=== PATIENT | female | born 1965 | race Caucasian/White ===

== ENCOUNTER → 2016-09-14 | Outpatient (CLI) | payer SELFPAY ==
--- NOTE | 2016-09-18 09:09 | MM ---
Reason for exam: additional evaluation requested from prior study. Last mammogram was performed 9 months ago. History: Patient has history of breast cancer at age 50. Family history of breast cancer in 3 maternal aunts. Radiation therapy of the right breast, January 2016. Malignant US breast localization RT of the right breast, December 02, 2015. US biopsy breast VAD LT of the left breast, October 18, 2015. Malignant US breast needle core RT of the right breast, August 17, 2015. Taking antineoplastic beginning at age 51. Physical Findings: Nurse did not find any significant physical abnormalities on exam. MG 3D Diag Mammo W/Cad CRISTOFER Bilateral CC and MLO view(s) were taken. Prior study comparison: December 02, 2015, right breast MG diagnostic mammo RT wo CAD. October 18, 2015, left breast MG diagnostic mammo LT wo CAD. The breast tissue is heterogeneously dense. This may lower the sensitivity of mammography. Previous mammotome biopsy in the left breast. Surgical changes in the right breast. No significant new findings when compared with previous films. These results were verbally communicated with the patient and result sheet given to the patient on 09/14/16. ASSESSMENT: Benign, BI-RAD 2 RECOMMENDATION: Routine screening mammogram of both breasts in 1 year.
== END | disposition home or self-care (01) ==
LOC: RADMAMWWP 12:43
PROVIDERS: ATTEND Radiology Radiation Oncology
DX: Z85.3 Personal history of malignant neoplasm of breast (principal)
CPT/HCPCS: G0204; G0279

== ENCOUNTER → 2018-10-13 | Outpatient (CLI) | payer BC, OTHER ==
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
== END | disposition home or self-care (01) ==
LOC: RADMRIMAIN 10:27
PROVIDERS: ATTEND Nurse Practitioner Family
DX: I67.82 Cerebral ischemia (principal)
CPT/HCPCS: 70553; A9585

== ENCOUNTER → 2019-06-04 | Outpatient (CLI) | payer OTHER ==
--- NOTE | 2019-06-16 08:48 | MM ---
Reason for exam: screening (asymptomatic). Last mammogram was performed 2 years and 9 months ago. History: Patient is postmenopausal and has history of breast cancer at age 50. Family history of breast cancer in 3 maternal aunts. Radiation therapy of the right breast, January 2016. Malignant US breast localization RT of the right breast, December 02, 2015. US biopsy breast VAD LT of the left breast, October 18, 2015. Malignant US breast needle core RT of the right breast, August 17, 2015. Taking antineoplastic for 1 year beginning at age 51. Physical Findings: A clinical breast exam by your physician is recommended on an annual basis and results should be correlated with mammographic findings. MG 3D Screening Mammo W/Cad Bilateral CC and MLO view(s) were taken. Prior study comparison: September 14, 2016, bilateral MG 3d diag mammo w/cad CRISTOFER. December 02, 2015, right breast MG diagnostic mammo RT wo CAD. The breast tissue is heterogeneously dense. This may lower the sensitivity of mammography. There is a new 3mm left lower inner quadrant mass at middle depth and left upper outer quadrant architectural distortion 6cm from nipple in the upper outer quadrant. Benign appearing bilateral calcifications. Right superior middle depth architectural distortion on 3D MLO 45/87. Post therapy change on the right. ASSESSMENT: Incomplete: need additional imaging evaluation, BI-RAD 0 RECOMMENDATION: Special view mammogram of both breasts. If lesion persists on supplemental views, image directed ultrasound is recommended. [facility] will attempt to contact patient to return for supplemental views and ultrasound if indicated.
== END | disposition home or self-care (01) ==
LOC: RADMAMWWP 09:12
PROVIDERS: ATTEND Family Medicine
DX: Z12.31 Encounter for screening mammogram for malignant neoplasm of breast (principal)
CPT/HCPCS: 77063; 77067

== ENCOUNTER 2020-01-12 14:30 | Emergency (ER) | payer OTHER ==
[2020-01-12 14:36] VITALS: RESP 18
[2020-01-12] MEDS ORDERED: KETOROLAC 15 MG/ML 1 ML VIAL IVP STA (15:01)
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
[2020-01-12 15:41] LABS: Basophils % (A) 1 %; Eosinophils # (A) 0.1 k/uL (0-0.7); Eosinophils % (A) 2 %; HCT 44.1 % (34.0-46.0); HGB 14.6 gm/dL (11.4-16.0); Lymphocytes # (A) 1.4 k/uL (1.0-4.8); Lymphocytes % (A) 27 %; MCH 29.4 pg (25.0-35.0); MCHC 33.1 g/dL (31.0-37.0); MCV 88.7 fL (80.0-100.0); Mean Platelet Volume 7.1; Monocytes # (A) 0.2 k/uL (0-1.0); Monocytes % (A) 4 %; Neutrophils # (A) 3.3 k/uL (1.3-7.7); Neutrophils % (A) 65 %; Platelet Count 229 k/uL (150-450); RBC 4.98 m/uL (3.80-5.40); RDW 12.8 % (11.5-15.5)
[2020-01-12 15:44] LABS: Appearance,Urine Clear (Clear); Bilirubin,Urine Negative (Negative); Blood,Urine Negative (Negative); Color,Urine Light Yellow; Glucose,Urine (UA) Negative (Negative); Ketones,Urine Negative (Negative); Leukocyte Esterase,Urine Negative (Negative); Nitrite,Urine Negative (Negative); Protein,Urine Negative (Negative); Specific Gravity,Urine 1.008 (1.001-1.035); Urobilinogen,Urine <2.0 mg/dL (<2.0)
--- NOTE | 2020-01-12 15:53 | XR ---
EXAMINATION TYPE: XR chest 2V DATE OF EXAM: 01/12/2020 CLINICAL HISTORY: Difficulty breathing TECHNIQUE: Frontal and lateral views of the chest are obtained. COMPARISON: None FINDINGS: The cardiomediastinal silhouette is within normal limits for size. Pulmonary vasculature i s normal. There is no focal air space opacity, pleural effusion, or pneumothorax seen. The osseous st ructures are intact. Right breast surgical clips. IMPRESSION: No acute cardiopulmonary process.
[2020-01-12 16:07] LABS: ALT 26 U/L (4-34); AST 43 U/L (14-36); African American GFR (CKD) >90 (>60 ml/min/1.73 sqM); Albumin 4.7 g/dL (3.5-5.0); Alkaline Phosphatase 95 U/L (38-126); Anion Gap 6 mmol/L; Blood Urea Nitrogen 12 mg/dL (7-17); Calcium 9.4 mg/dL (8.4-10.2); Carbon Dioxide 28 mmol/L (22-30); Chloride 103 mmol/L (98-107); Glucose 97 mg/dL (74-99); Non-African American GFR(CKD) >90 (>60 ml/min/1.73 sqM); Sodium 137 mmol/L (137-145); Total Bilirubin 0.7 mg/dL (0.2-1.3); Total Protein 8.3 g/dL (6.3-8.2)
[2020-01-12 16:10] LABS: INR 0.9 (<1.2); Partial Thromboplastin Time 27.2 sec (22.0-30.0); Prothrombin Time 9.5 sec (9.0-12.0)
[2020-01-12 17:13] LABS: Potassium 4.3 mmol/L (3.5-5.1)
--- NOTE | 2020-01-12 17:22 | CT ---
EXAMINATION TYPE: CT chest wo con DATE OF EXAM: 01/12/2020 COMPARISON: None HISTORY: Shortness of breath post shoulder injection today CT DLP: 273.8 mGycm Automated exposure control for dose reduction was used. Images were obtained from the thoracic inlet to the diaphragm with no contrast. FINDINGS: The lungs are clear of infiltrate. There is no pleural effusion or pneumothorax. There is no mediasti nal adenopathy. Thoracic aorta has normal size. There is no sign of aneurysm. There are no hilar mass es. Heart size is normal. There is no pericardial effusion. Upper abdominal soft tissues are intact. The bony thorax is intact. There is no compression fracture. Sternum is intact. The ribs appear intac t. I see no bony destructive process. There is no evidence of a soft tissue mass. Visualized shoulder joints appear intact. IMPRESSION: Negative CT scan of the chest.
[2020-01-12 18:17] VITALS: BP 140/93; PULSE 93; TEMP 98
== END 2020-01-12 18:17 | disposition home or self-care (01) ==
LOC: EC 14:30
DX: R06.02 Shortness of breath (principal); R07.89 Other chest pain; Z91.040 Latex allergy status; Z91.048 Other nonmedicinal substance allergy status; Z85.3 Personal history of malignant neoplasm of breast; Z98.890 Other specified postprocedural states
CPT/HCPCS: 36415; 80053; 83735; 84484; 85025; 85610; 85730; 81003; 71046; 71250; 99285; 96374; J1885; 93005

== ENCOUNTER → 2020-01-13 | Outpatient (CLI) | payer OTHER ==
--- NOTE | 2020-01-13 15:09 | XR ---
EXAMINATION TYPE: XR chest 2V DATE OF EXAM: 01/13/2020 COMPARISON: 01/12/2020 HISTORY: Shortness of breath TECHNIQUE: Frontal and lateral views of the chest are obtained. FINDINGS: Scattered senescent parenchymal changes noted. Hyperinflation compatible with COPD. No evidence for infiltrate. No evidence for atelectasis. Heart size is stable. Mediastinal structures are stable and grossly unremarkable. No evidence for hilar prominence. Degenerative changes dorsal spine. IMPRESSION: 1. No evidence for acute pulmonary disease.
== END | disposition home or self-care (01) ==
LOC: RADXRMAIN 14:44
PROVIDERS: ATTEND Family Medicine
DX: R06.02 Shortness of breath (principal)
CPT/HCPCS: 71046

== ENCOUNTER → 2020-02-05 | Outpatient (CLI) | payer OTHER ==
--- NOTE | 2020-02-05 16:14 | BD ---
EXAMINATION TYPE: Axial Bone Density DATE OF EXAM: 02/05/2020 COMPARISON: NONE CLINICAL HISTORY: Height: 63 Weight: 170.0 FRAX RISK QUESTIONS: Alcohol (3 or more units per day): NO Family History (Parent hip fracture): no Glucocorticoids (More than 3mos): no (Ex: prednisone, prednisolone, methylprednisolone, dexamethasone, and hydrocortisone). History of Fracture in Adulthood: no Secondary Osteoporosis: 1. Type 1 Diabetes: no 2. Hyperthyroidism: no 3. Menopause before 45: yes 4. Malnutrition: no 5. Chronic liver disease: no Rheumatoid Arthritis: no Current Tobacco Use: no RISK FACTORS HISTORY OF: Family History of Osteoporosis: no Active: sometimes Diet low in dairy products/other sources of calcium: yes Postmenopausal woman: age 31 hysterectomy Lost more than 2 inches in height since high school: no MEDICATIONS: pain meds, cholesterol meds Additional History: EXAM MEASUREMENTS: Bone mineral densitometry was performed using the [employer] System. Bone mineral density as measured about the Lumbar spine is: ----- L1-L4(G/cm2): 1.287 T Score Values are as follows: ----- L2: 1.0 ----- L3: 1.5 ----- L4: 0.6 ----- L1-L4: 0.9 Bone mineral density : baseline Bone mineral density about the R hip (g/cm2): 1.020 Bone mineral density about the L hip (g/cm2): 1.030 T Score values are as follows: -----R Neck: -0.1 -----L Neck: -0.1 -----R Total: 0.6 -----L Total: 0.7 Bone mineral density : baseline IMPRESSION: Normal (Values between +1 and -1 indicate normal bone mass). Consider repeating this study in 5 year s or sooner if there is some new clinical indication. NOTE: T-SCORE=SD OF THE YOUNG ADULT MEAN.
== END | disposition home or self-care (01) ==
LOC: RADBDWWP 12:54
PROVIDERS: ATTEND Family Medicine
DX: M89.9 Disorder of bone, unspecified (principal); Z78.0 Asymptomatic menopausal state
CPT/HCPCS: 77080

== ENCOUNTER → 2020-02-08 | Outpatient (CLI) | payer SELFPAY ==
--- NOTE | 2020-02-09 08:38 | MM ---
Reason for exam: additional evaluation requested from prior study. Last mammogram was performed 8 months ago. History: Patient is postmenopausal and has history of breast cancer at age 50. Family history of breast cancer in 3 maternal aunts. Radiation therapy of the right breast, January 2016. Malignant US breast localization RT of the right breast, December 02, 2015. US biopsy breast VAD LT of the left breast, October 18, 2015. Malignant US breast needle core RT of the right breast, August 17, 2015. Taking antineoplastic for 1 year beginning at age 51. Physical Findings: Nurse Summary: 1.5cm nodule in the right breast at 10-11 o'clock and a 1cm nodule in the left breast at 1 o'clock (nurse mj). MG 3D Diag Mammo W/Cad CRISTOFER Bilateral CC and MLO view(s) were taken. Prior study comparison: June 04, 2019, bilateral MG 3d screening mammo w/cad. September 14, 2016, bilateral MG 3d diag mammo w/cad CRISTOFER. The breast tissue is extremely dense which could obscure a lesion on mammography. There is no discrete abnormality including area of concern. Stable post operative lumpectomy. These results were verbally communicated with the patient and result sheet given to the patient on 02/08/20. ASSESSMENT: Incomplete: need additional imaging evaluation, BI-RAD 0 RECOMMENDATION: Ultrasound of both breasts.
--- NOTE | 2020-02-09 08:39 | USB ---
Reason for exam: additional evaluation requested from abnormal screening. History: Patient is postmenopausal and has history of breast cancer at age 50. Family history of breast cancer in 3 maternal aunts. Radiation therapy of the right breast, January 2016. Malignant US breast localization RT of the right breast, December 02, 2015. US biopsy breast VAD LT of the left breast, October 18, 2015. Malignant US breast needle core RT of the right breast, August 17, 2015. Taking antineoplastic for 1 year beginning at age 51. US Breast Limited BILAT Right limited breast ultrasound including focal area of concern, retroareolar and axilla demonstrates no cystic or solid lesion seen. Left limited breast ultrasound including focal area of concern, retroareolar and axilla demonstrates a 6 x 5 x 6mm oval lesion at 12 o'clock and a 7mm oval lymph node at the axilla tail. These results were verbally communicated with the patient and result sheet given to the patient on 02/08/20. ASSESSMENT: Probably benign, BI-RAD 3 RECOMMENDATION: Ultrasound of the left breast in 6 months.
== END | disposition home or self-care (01) ==
LOC: RADMAMWWP 13:30
PROVIDERS: ATTEND Family Medicine
DX: R92.8 Other abnormal and inconclusive findings on diagnostic imaging of breast (principal)
CPT/HCPCS: 77062; 77066